=== PATIENT | female | born 1950 | race Two or more races ===

== ENCOUNTER 2018-10-03 13:19 | Outpatient (CLI) | payer OTHER | END 2018-10-03 13:44 | disposition home or self-care (01) | LOC: RAD 501 13:19 | DX: M54.6 Pain in thoracic spine (principal); M54.5 Low back pain ==

== ENCOUNTER → 2019-02-23 | Outpatient (CLI) | payer OTHER | END | disposition home or self-care (01) | LOC: RAD 15:36 | DX: M17.11 Unilateral primary osteoarthritis, right knee (principal); M54.2 Cervicalgia ==

== ENCOUNTER 2019-08-17 11:57 | Outpatient (CLI) | payer OTHER | END 2019-08-17 12:30 | disposition home or self-care (01) | LOC: RAD 11:57 | DX: M54.5 Low back pain (principal) ==

== ENCOUNTER 2021-01-20 12:07 | Outpatient (CLI) | payer OTHER | END 2021-01-20 12:13 | disposition home or self-care (01) | LOC: RAD 12:07 | PROVIDERS: ATTEND Physical Medicine & Rehabilitation | DX: M17.0 Bilateral primary osteoarthritis of knee (principal); M25.562 Pain in left knee; M25.561 Pain in right knee ==

== ENCOUNTER 2021-06-25 09:25 | Outpatient (CLI) | payer OTHER | END 2021-06-25 09:26 | disposition home or self-care (01) | LOC: NUCLEAR 09:25 | PROVIDERS: ATTEND Physical Medicine & Rehabilitation | DX: I65.23 Occlusion and stenosis of bilateral carotid arteries (principal) ==

== ENCOUNTER 2021-07-31 15:48 | Outpatient (CLI) | payer OTHER | END 2021-07-31 15:49 | disposition home or self-care (01) | LOC: RAD 15:48 | PROVIDERS: ATTEND Physical Medicine & Rehabilitation | DX: N20.0 Calculus of kidney (principal) ==

== ENCOUNTER 2021-09-08 13:21 | Outpatient (CLI) | payer OTHER | END 2021-09-08 13:34 | disposition home or self-care (01) | LOC: SONOGRAMA 13:21 | PROVIDERS: ATTEND Physical Medicine & Rehabilitation | DX: N27.1 Small kidney, bilateral (principal) ==

== ENCOUNTER 2022-11-08 08:03 | Outpatient (CLI) | payer OTHER | END 2022-11-08 08:04 | disposition home or self-care (01) | LOC: NUCLEAR 08:03 | PROVIDERS: ATTEND Specialist | DX: R07.89 Other chest pain (principal) ==

== ENCOUNTER 2023-03-10 12:14 | Outpatient (CLI) | payer OTHER | END 2023-03-10 12:18 | disposition home or self-care (01) | LOC: LAB 12:14 | PROVIDERS: ATTEND Radiology Diagnostic Radiology | DX: J44.9 Chronic obstructive pulmonary disease, unspecified (principal) ==

== ENCOUNTER 2023-03-10 12:36 | Outpatient (CLI) | payer OTHER | END 2023-03-10 12:41 | disposition home or self-care (01) | LOC: TOM 12:36 | PROVIDERS: ATTEND Internal Medicine Cardiovascular Disease | DX: J44.9 Chronic obstructive pulmonary disease, unspecified (principal) | CPT/HCPCS: 71260; Q9965 ==

== ENCOUNTER 2023-08-11 13:18 | Outpatient (CLI) | payer OTHER | END 2023-08-11 13:24 | disposition home or self-care (01) | LOC: SONOGRAMA 13:18 | PROVIDERS: ATTEND Urology | DX: R35.0 Frequency of micturition (principal); N32.81 Overactive bladder; N30.10 Interstitial cystitis (chronic) without hematuria ==

== ENCOUNTER 2023-08-26 13:55 | Outpatient (CLI) | payer OTHER | END 2023-08-26 14:02 | disposition home or self-care (01) | LOC: RAD 13:55 | PROVIDERS: ATTEND Physical Medicine & Rehabilitation | DX: M17.0 Bilateral primary osteoarthritis of knee (principal) ==

== ENCOUNTER 2024-02-27 14:00 | Outpatient (CLI) | payer OTHER | END 2024-02-27 14:05 | disposition home or self-care (01) | LOC: RAD 14:00 | PROVIDERS: ATTEND Physical Medicine & Rehabilitation | DX: M54.2 Cervicalgia (principal); R53.83 Other fatigue ==

== ENCOUNTER 2025-03-04 15:25 | Outpatient (CLI) | payer OTHER | END 2025-03-04 15:29 | disposition home or self-care (01) | LOC: RAD 15:25 | PROVIDERS: ATTEND Physical Medicine & Rehabilitation | DX: M54.6 Pain in thoracic spine (principal) ==

== ENCOUNTER 2025-05-22 13:54 | Outpatient (CLI) | payer OTHER | END 2025-05-22 14:21 | disposition home or self-care (01) | LOC: RAD 13:54 | PROVIDERS: ATTEND Physical Medicine & Rehabilitation | DX: M79.671 Pain in right foot (principal); W19.XXXA Unspecified fall, initial encounter ==